=== PATIENT | female | born 1980 | race Caucasian/White ===

== ENCOUNTER 2017-02-04 16:27 | Emergency (ER) | payer MEDICARE, OTHER ==
[~2017-02-04] VITALS: Ht 157.5 cm; Wt 54.4 kg
[2017-02-04 16:42] VITALS: BP 121/81; PULSE 79; RESP 16; TEMP 98.5; O2SAT 100
[2017-02-04] MEDS ORDERED: FERR1TAB36 PO (17:05)
[2017-02-04] MEDS ORDERED: GABA600T PO (17:05)
[2017-02-04] MEDS ORDERED: FLUV50TA PO (17:06)
[2017-02-04 17:20] LABS: BLOOD, URINE SMALL (NEG); GLUCOSE,URINE NEG (NEG); KETONE, URINE TRACE mg/dL (NEG); NITRITE,URINE NEG (NEG)
[2017-02-04 17:27] LABS: MUCUS URINE FEW /lpf (OCC); URINE COLOR YELLOW (YELLW/STRAW)
[2017-02-04 17:28] LABS: COMMENT (UR) CULT NOT INDICATED; CULTURE IF INDICATED CULT NOT INDICATED; SQUAMOUS EPITHELIAL CELL URINE 0-5 /hpf (0-5)
[2017-02-04] MEDS ORDERED: ACETAMINOPHEN/HYDROcodone 325 MG/5 MG TAB PO ONE (18:30)
[2017-02-04 18:52] LABS: AUTOMATED NEUTROPHIL # 2.4 TH/MM3 (1.8-7.7); BASOPHIL % 0.7 % (0.0-2.0); EOSINOPHIL % 0.2 % (0.0-4.0); HEMATOCRIT 43.7 % (35.0-46.0); HEMO FLAGS DIFF FINAL; LYMPH % 45.8 % (9.0-44.0); LYMPHOCYTE # 2.3 TH/MM3 (1.0-4.8); MEAN CELL VOLUME 87.2 FL (80.0-100.0); MEAN CORPUSCULAR HGB CONC 33.2 % (32.0-36.0); MONO % 5.9 % (0.0-8.0); NEUT % 47.4 % (16.0-70.0); PLATELET COUNT 184 TH/MM3 (150-450); RED BLOOD COUNT 5.01 MIL/MM3 (4.00-5.30); RED CELL DISTRIBUTION WIDTH 13.1 % (11.6-17.2)
[2017-02-04 19:03] LABS: BICARBONATE 24.9 MEQ/L (21.0-32.0)
[2017-02-04] MEDS ORDERED: HYDR-3534 PO (19:52)
--- NOTE | 2017-02-04 19:53 | PD ---
HPI Chief Complaint: General Weakness Time Seen by Provider: 18:25 Travel History International Travel<30 days: No Contact w/Intl Traveler<30days: No Traveled to known affect area: No History of Present Illness HPI This 36-year-old female is complaining of some lower abdominal pain and pain with urination. She has a history of interstitial cystitis. She also had urinary tract infections in the past. Is also had occasional palpitations. She does have a history of hyperthyroidism that was treated with Tapazole. She was last on Tapazole about a year ago. PFSH Past Medical History Anemia: Yes Autoimmune Disease: Yes (GRAVE'S) Fibromyalgia: Yes Genitourinary: Yes (INTERSTITIAL CYSTITIS) Musculoskeletal: Yes (CHRONIC BACK PAIN) Reproductive: Yes (ENDOMETRIOSIS) Renal Failure: Yes (STAGE II CKD) Influenza Vaccination: Yes ?: Not Tubal Ligation: Yes Past Surgical History Section: Yes Genitourinary Surgery: Yes (CYSTOSCOPY) Hysterectomy: Yes Oral Surgery: Yes Social History Alcohol Use: No Tobacco Use: No Allergies-Medications (Allergen,Severity, Reaction): Coded Allergies: Sulfa (Verified Allergy, Severe, THROAT SWELLS, 02/04/17) Reported Meds & Prescriptions Reported Meds & Active Scripts Active Reported Fluvoxamine (Fluvoxamine Maleate) 50 Mg Tab 50 Mg PO HS Iron (Ferrous Sulfate) 325 Mg Tab 325 Mg PO DAILY Take Gabapentin 600 Mg Tab 1,200 Mg PO TID Review of Systems General / Constitutional: No: Fever, Chills Eyes: No: Diploplia, Blurred Vision HENT: No: Headaches, Vertigo Cardiovascular: Positive: Palpitations Respiratory: No: Cough, Shortness of Breath Gastrointestinal: No: Nausea, Vomiting Genitourinary: Positive: Frequency, Dysuria Musculoskeletal: No: Myalgias Skin: No Rash Physical Exam Narrative GENERAL: Well-developed male SKIN: Focused skin assessment warm/dry. HEAD: Atraumatic. Normocephalic. EYES: Pupils equal and round. No scleral icterus. No injection or drainage. ENT: No nasal bleeding or discharge. Mucous membranes pink and moist. NECK: Trachea midline. No JVD. CARDIOVASCULAR: Regular rate and rhythm. No murmur appreciated. RESPIRATORY: No accessory muscle use. Clear to auscultation. Breath sounds equal bilaterally. GASTROINTESTINAL: Abdomen soft, non-tender, nondistended. Hepatic and splenic margins not palpable. There is some suprapubic tenderness MUSCULOSKELETAL: No obvious deformities. No clubbing. No cyanosis. No edema. NEUROLOGICAL: Awake and alert. No obvious cranial nerve deficits. Motor grossly within normal limits. Normal speech. PSYCHIATRIC: Appropriate mood and affect; insight and judgment normal. Data Data Last Documented VS Vital Signs Date Time Temp Pulse Resp B/P Pulse Ox O2 Delivery O2 Flow Rate FiO2 02/04/17 16:42 98.5 79 16 121/81 100 Orders Urinalysis - C+S If Indicated (02/04/17 16:59) Complete Blood Count With Diff (02/04/17 18:29) Basic Metabolic Panel (Bmp) (02/04/17 18:29) Thyroid Stimulating Hormone (02/04/17 18:29) Acetamin-Hydrocod 325-5 Mg ([place] 5-325 (02/04/17 18:30) Labs Laboratory Tests Test 02/04/17 02/04/17 17:05 18:45 Urine Color YELLOW Urine Turbidity CLEAR Urine pH 7.0 Urine Specific [place] 1.031 Urine Protein 30 mg/dL Urine Glucose (UA) NEG mg/dL Urine Ketones TRACE mg/dL Urine Occult Blood SMALL Urine Nitrite NEG Urine Bilirubin NEG Urine Leukocyte Esterase NEG Urine RBC 4-9 /hpf Urine WBC 3-5 /hpf Urine Squamous Epithelial 0-5 /hpf Cells Urine Mucus FEW /lpf Microscopic Urinalysis Comment CULT NOT INDICATED White Blood Count 5.0 TH/MM3 Red Blood Count 5.01 MIL/MM3 Hemoglobin 14.5 GM/DL Hematocrit 43.7 % Mean Corpuscular Volume 87.2 FL Mean Corpuscular Hemoglobin 29.0 PG Mean Corpuscular Hemoglobin 33.2 % Concent Red Cell Distribution Width 13.1 % Platelet Count 184 TH/MM3 Mean Platelet Volume 8.0 FL Neutrophils (%) (Auto) 47.4 % Lymphocytes (%) (Auto) 45.8 % Monocytes (%) (Auto) 5.9 % Eosinophils (%) (Auto) 0.2 % Basophils (%) (Auto) 0.7 % Neutrophils # (Auto) 2.4 TH/MM3 Lymphocytes # (Auto) 2.3 TH/MM3 Monocytes # (Auto) 0.3 TH/MM3 Eosinophils # (Auto) 0.0 TH/MM3 Basophils # (Auto) 0.0 TH/MM3 CBC Comment DIFF FINAL Differential Comment Sodium Level 143 MEQ/L Potassium Level 4.0 MEQ/L Chloride Level 107 MEQ/L Carbon Dioxide Level 24.9 MEQ/L Anion Gap 11 MEQ/L Blood Urea Nitrogen 14 MG/DL Creatinine 0.88 MG/DL Estimat Glomerular Filtration 73 ML/MIN Rate Random Glucose 86 MG/DL Calcium Level 8.7 MG/DL Thyroid Stimulating Hormone 0.844 uIU/ML 3rd Gen [facility] Medical Decision Making Medical Screen Exam Complete: Yes Emergency Medical Condition: Yes Medical Record Reviewed: Yes Differential Diagnosis Differential includes UTI, cystitis, hypothyroidism Narrative Course Urine is negative for infection. Her TSH is within normal limits. She'll be given some pain medication to use for interstitial cystitis Diagnosis Primary Impression: Interstitial cystitis Scripts Hydrocodone-Acetaminophen (Lortab)7.5-325 Mg Tab1 Tab PO Q4H PRN (PAIN) #30 TAB Ref 0 Prov:Roni Jhaveri MD 02/04/17 Disposition: 01 DISCHARGE HOME Condition: Stable Roni Jhaveri MD Feb 04, 2017 19:53
[2017-02-04 20:19] VITALS: BP 110/70
== END 2017-02-04 20:20 | disposition home or self-care (01) ==
LOC: PHED 16:27 → PHEFT 20:20
DX: N30.10 Interstitial cystitis (chronic) without hematuria (principal); M79.7 Fibromyalgia; N18.2 Chronic kidney disease, stage 2 (mild); E05.00 Thyrotoxicosis with diffuse goiter without thyrotoxic crisis or storm; Z87.440 Personal history of urinary (tract) infections
CPT/HCPCS: 80048; 81001; 84443; 85025; 99284

== ENCOUNTER 2017-02-09 10:55 | Emergency (ER) | payer MEDICARE, OTHER ==
[~2017-02-09] VITALS: Ht 157.5 cm; Wt 55.0 kg
[~2017-02-09 10:55] MED LIST: FERR1TAB36 PO; FLUV50TA PO; GABA600T PO; HYDR-3534 PO
[2017-02-09 11:04] VITALS: BP 114/79; PULSE 94; RESP 16; TEMP 98.1; O2SAT 95
[2017-02-09 11:12] VITALS: BP 119/72; PULSE 90; RESP 18; O2SAT 96
[2017-02-09 11:13] LABS: BLOOD, URINE LARGE (NEG); GLUCOSE,URINE NEG (NEG); KETONE, URINE TRACE mg/dL (NEG); NITRITE,URINE NEG (NEG); PH, URINE 5.5 (5.0-8.5)
[2017-02-09 11:19] LABS: METHOD OF COLLECTION CLEAN CATCH; URINE COLOR YELLOW (YELLW/STRAW)
[2017-02-09 11:20] LABS: COMMENT (UR) CULT NOT INDICATED; CULTURE IF INDICATED CULT NOT INDICATED; SQUAMOUS EPITHELIAL CELL URINE 0-5 /hpf (0-5); WBC, URINE 0-2 /hpf (0-5)
[2017-02-09] MEDS ORDERED: SODIUM CHLOR 0.9% 1000 ML INJ 1,000 ML IV SCH (11:25)
[2017-02-09] MEDS ORDERED: MORPHINE SULFATE 4 MG/ML INJ IV PUSH ONE ×2 (11:30→13:00)
[2017-02-09] MEDS ORDERED: ONDANSETRON HCL 4 MG/2 ML VIAL IVP ONE (11:30)
--- NOTE | 2017-02-09 11:30 | PD ---
HPI Chief Complaint: Complaint Time Seen by Provider: 11:24 Travel History International Travel<30 days: No Contact w/Intl Traveler<30days: No Traveled to known affect area: No History of Present Illness HPI 36-year-old female with history of fibromyalgia, Graves' disease, interstitial cystitis, endometriosis, kidney stones with previous stenting, recently moved from [place], does not yet have a urologist, presents to the ER today because of right flank pains that started yesterday, radiates down to the right flank area, urinary urgency, which she currently rates it a 9 out of 10. She denies any hematuria, fevers, vomiting, or other symptoms. She states that the pain feels like a scraping. Modifying Factors: None Associated Signs & Symptoms: Right flank pain Risk Factors: Kidney stone history PFSH Past Medical History Anemia: Yes Autoimmune Disease: Yes (GRAVE'S) Fibromyalgia: Yes Genitourinary: Yes (INTERSTITIAL CYSTITIS) Musculoskeletal: Yes (CHRONIC BACK PAIN) Reproductive: Yes (ENDOMETRIOSIS) Renal Failure: Yes (STAGE II CKD) Influenza Vaccination: Yes ?: Not Tubal Ligation: Yes Past Surgical History Section: Yes Genitourinary Surgery: Yes (CYSTOSCOPY) Hysterectomy: Yes Oral Surgery: Yes Social History Alcohol Use: No Tobacco Use: No Substance Use: No Allergies-Medications (Allergen,Severity, Reaction): Coded Allergies: Sulfa (Verified Allergy, Severe, THROAT SWELLS, 02/09/17) Reported Meds & Prescriptions Reported Meds & Active Scripts Active Reported Fluvoxamine (Fluvoxamine Maleate) 50 Mg Tab 50 Mg PO HS Gabapentin 600 Mg Tab 1,200 Mg PO TID Review of Systems Except as stated in HPI: all other systems reviewed are Neg Physical Exam Narrative GENERAL: Well-developed young white female patient in mild distress. Awake and oriented 3. SKIN: Focused skin assessment warm/dry. HEAD: Atraumatic. Normocephalic. EYES: Pupils equal and round. No scleral icterus. No injection or drainage. ENT: No nasal bleeding or discharge. Mucous membranes pink and moist. NECK: Trachea midline. No JVD. CARDIOVASCULAR: Regular rate and rhythm. No murmur appreciated. RESPIRATORY: No accessory muscle use. Clear to auscultation. Breath sounds equal bilaterally. GASTROINTESTINAL: Abdomen soft, mild suprapubic tenderness without guarding or rebound, nondistended. Hepatic and splenic margins not palpable. MUSCULOSKELETAL: No obvious deformities. No clubbing. No cyanosis. No edema. BACK: Right CVA tenderness. No rash. No point tenderness on palpation of the spine. NEUROLOGICAL: Awake and alert. No obvious cranial nerve deficits. Motor grossly within normal limits. Normal speech. PSYCHIATRIC: Appropriate mood and affect; insight and judgment normal. Data Data Last Documented VS Vital Signs Date Time Temp Pulse Resp B/P Pulse Ox O2 Delivery O2 Flow Rate FiO2 02/09/17 12:03 76 18 121/69 99 Room Air 02/09/17 11:04 98.1 Orders Urinalysis - C+S If Indicated (02/09/17 11:02) Ed Urine Pregnancytest Poc (02/09/17 11:06) Complete Blood Count With Diff (02/09/17 11:25) Comprehensive Metabolic Panel (02/09/17 11:25) Lipase (02/09/17 11:25) Ct Abd/Pel W/O Iv Contrast (02/09/17 11:25) Iv Access Insert/Monitor (02/09/17 11:25) Ecg Monitoring (02/09/17 11:25) Oximetry (02/09/17 11:25) Morphine Inj (Morphine Inj) (02/09/17 11:30) Ondansetron Inj (Zofran Inj) (02/09/17 11:30) Sodium Chlor 0.9% 1000 Ml Inj (Ns 1000 M (02/09/17 11:25) Sodium Chloride 0.9% Flush (Ns Flush) (02/09/17 11:30) Morphine Inj (Morphine Inj) (02/09/17 13:00) Labs Laboratory Tests Test 02/09/17 02/09/17 11:00 11:30 Urine Collection Type CLEAN CATCH Urine Color YELLOW Urine Turbidity CLOUDY Urine pH 5.5 Urine Specific [place] 1.026 Urine Protein 100 mg/dL Urine Glucose (UA) NEG mg/dL Urine Ketones TRACE mg/dL Urine Occult Blood LARGE Urine Nitrite NEG Urine Bilirubin NEG Urine Leukocyte Esterase NEG Urine RBC 50-99 /hpf Urine WBC 0-2 /hpf Urine Squamous Epithelial 0-5 /hpf Cells Microscopic Urinalysis Comment CULT NOT INDICATED White Blood Count 4.1 TH/MM3 Red Blood Count 4.86 MIL/MM3 Hemoglobin 14.3 GM/DL Hematocrit 42.7 % Mean Corpuscular Volume 87.7 FL Mean Corpuscular Hemoglobin 29.4 PG Mean Corpuscular Hemoglobin 33.5 % Concent Red Cell Distribution Width 13.7 % Platelet Count 214 TH/MM3 Mean Platelet Volume 7.9 FL Neutrophils (%) (Auto) 63.9 % Lymphocytes (%) (Auto) 29.4 % Monocytes (%) (Auto) 5.6 % Eosinophils (%) (Auto) 0.1 % Basophils (%) (Auto) 1.0 % Neutrophils # (Auto) 2.7 TH/MM3 Lymphocytes # (Auto) 1.2 TH/MM3 Monocytes # (Auto) 0.2 TH/MM3 Eosinophils # (Auto) 0.0 TH/MM3 Basophils # (Auto) 0.0 TH/MM3 CBC Comment DIFF FINAL Differential Comment Sodium Level 145 MEQ/L Potassium Level 4.1 MEQ/L Chloride Level 108 MEQ/L Carbon Dioxide Level 31.1 MEQ/L Anion Gap 6 MEQ/L Blood Urea Nitrogen 15 MG/DL Creatinine 0.85 MG/DL Estimat Glomerular Filtration 76 ML/MIN Rate Random Glucose 90 MG/DL Calcium Level 9.2 MG/DL Total Bilirubin 0.6 MG/DL Aspartate Amino Transf 23 U/L (AST/SGOT) Alanine Aminotransferase 24 U/L (ALT/SGPT) Alkaline Phosphatase 62 U/L Total Protein 6.7 GM/DL Albumin 3.9 GM/DL Lipase 77 U/L [facility] Medical Decision Making Medical Screen Exam Complete: Yes Emergency Medical Condition: Yes Medical Record Reviewed: Yes Interpretation(s) Laboratory Tests Test 02/09/17 02/09/17 11:00 11:30 Urine Turbidity CLOUDY (CLEAR) Urine Protein 100 mg/dL (NEG-TRACE) Urine Ketones TRACE mg/dL (NEG) Urine Occult Blood LARGE (NEG) Urine RBC 50-99 /hpf (0-3) Chloride Level 108 MEQ/L (98-107) Estimat Glomerular Filtration 76 ML/MIN (>89) Rate Differential Diagnosis Right flank painsrenal colic versus pyelonephritis versus musculoskeletal versus cholecystitis versus gastroenteritis Narrative Course Patient confirms she has had an appendectomy and a hysterectomy. Her CAT scan of the belly did not show any signs of acute processes. Her urine shows some blood but no signs of significant UTI. Lab work was otherwise unremarkable. Patient had been given IV fluids and pain medication as well as Zofran in the ER. At this point, my plan would be to release the patient with follow-up to primary care physician. Return for any worsening in symptoms as necessary. The plan has discussed with her and she states understanding. Diagnosis Primary Impression: Flank pain Med/Other Pt SpecificInfo: Prescription(s) given Scripts Ondansetron Odt (Zofran Odt)4 Mg Tab4 Mg SL Q6HR PRN (Nausea/Vomiting) #5 TAB Ref 0 Prov:Ángel Magana MD 02/09/17 Tramadol-Acetaminophen 37.5-325 mg Tab1 Tab PO Q6H PRN (PAIN) #12 TAB Ref 0 Prov:Ángel Magana MD 02/09/17 Disposition: 01 DISCHARGE HOME Condition: Stable Ángel Magana MD Feb 09, 2017 11:30
[2017-02-09 11:34] VITALS: O2SAT 98
[2017-02-09 11:40] LABS: AUTOMATED NEUTROPHIL # 2.7 TH/MM3 (1.8-7.7); EOSINOPHIL % 0.1 % (0.0-4.0); HEMATOCRIT 42.7 % (35.0-46.0); HEMO FLAGS DIFF FINAL; LYMPH % 29.4 % (9.0-44.0); LYMPHOCYTE # 1.2 TH/MM3 (1.0-4.8); MEAN CELL VOLUME 87.7 FL (80.0-100.0); MEAN CORPUSCULAR HEMOGLOBIN 29.4 PG (27.0-34.0); MEAN CORPUSCULAR HGB CONC 33.5 % (32.0-36.0); MONO % 5.6 % (0.0-8.0); NEUT % 63.9 % (16.0-70.0); PLATELET COUNT 214 TH/MM3 (150-450); RED BLOOD COUNT 4.86 MIL/MM3 (4.00-5.30); RED CELL DISTRIBUTION WIDTH 13.7 % (11.6-17.2); WHITE BLOOD COUNT 4.1 TH/MM3 (4.0-11.0)
[2017-02-09] MEDS: SODIUM CHLORIDE 0.9% FLUSH 10 ML FLUSH IV FLUSH PRN ×2 (11:41→13:01)
[2017-02-09 11:50] LABS: CHLORIDE 108 MEQ/L (98-107); POTASSIUM 4.1 MEQ/L (3.5-5.1); SODIUM (NA) 145 MEQ/L (136-145)
[2017-02-09 11:53] LABS: ANION GAP 6 MEQ/L (5-15); BICARBONATE 31.1 MEQ/L (21.0-32.0)
[2017-02-09 11:54] LABS: BLOOD UREA NITROGEN 15 MG/DL (7-18)
[2017-02-09 11:56] LABS: ALT (GPT) 24 U/L (10-53); AST (GOT) 23 U/L (15-37)
[2017-02-09 11:57] LABS: GLOMERULAR FILTRATION RATE 76 ML/MIN (>89)
[2017-02-09 11:58] LABS: TOTAL BILIRUBIN ADULT 0.6 MG/DL (0.2-1.0)
[2017-02-09 11:59] LABS: ALKALINE PHOSPHATASE 62 U/L (45-117)
[2017-02-09 12:03] VITALS: BP 121/69; PULSE 76; RESP 18; O2SAT 99
--- NOTE | 2017-02-09 13:08 | RADHPO ---
EXAM DATE/TIME: 02/09/2017 11:39 [facility] COMPARISON: No previous studies available for comparison. INDICATIONS : Right flank pain. Evaluate for renal stone. ORAL CONTRAST: No oral contrast ingested. RADIATION DOSE: 7.32 CTDIvol (mGy) MEDICAL HISTORY : Renal calculi. Renal disease. SURGICAL HISTORY : Tubal ligation. section. Hysterectomy. ENCOUNTER: Initial ACUITY: 1 day PAIN SCALE: 8/10 LOCATION: Right flank TECHNIQUE: Volumetric scanning of the abdomen and pelvis was performed. Using automated exposure control and ad justment of the mA and/or kV according to patient size, radiation dose was kept as low as reasonably achievable to obtain optimal diagnostic quality images. FINDINGS: There is chronic atrophy of the left kidney. The left kidney measures approximately 6.9 cm in length . There is cortical thinning. The right kidney measures over 10 cm in length. There is a 0.6 cm ca lcifications seen at the inferior medial left kidney. There is also a peripheral cortical calcificat ion measuring 4 mm at the superior lateral left kidney. No right-sided renal stones are seen. No hy dronephrosis is seen on either side. The ureters appear clear. The liver, spleen, pancreas, and adrenal glands are unremarkable. Patient has bowel glynn in the r ight upper quadrant presumably from prior gastric bypass procedure. There is also bowel anastomosis sutures in the left upper quadrant likely from the prior bypass procedure. The bowels are unremarkab le. Patient appears to be status post hysterectomy. No pelvic mass is seen. There does appear to be hig h density material seen medial to the cecum which may be from prior appendectomy. The appendix is no t seen. Significant inflammatory change in the pelvis is not seen. The lung bases are clear. The b skye structures are grossly intact. CONCLUSION: 1. No renal stones are seen. 2. Chronic atrophy at the left kidney. There are calcifications seen at the left kidney which likel y are related to cortical calcifications. 3. Suspected post-surgical change from prior gastric bypass procedure. Favian Larios MD on February 09, 2017 at 12:40 Board Certified Radiologist. This report was verified electronically.
[2017-02-09] MEDS ORDERED: TRAM-388 PO (13:28)
[2017-02-09] MEDS ORDERED: ZOFR4TAB3 SL (13:28)
[2017-02-09 13:46] VITALS: BP 126/78
[2017-02-09] MEDS ORDERED: HYDR-3533 PO (13:48)
== END 2017-02-09 13:51 | disposition home or self-care (01) ==
LOC: PHED 10:55
DX: R10.31 Right lower quadrant pain (principal); R39.15 Urgency of urination; E05.00 Thyrotoxicosis with diffuse goiter without thyrotoxic crisis or storm; M79.7 Fibromyalgia; N18.2 Chronic kidney disease, stage 2 (mild); Z87.442 Personal history of urinary calculi
CPT/HCPCS: 74176; 80053; 81001; 83690; 85025; 96361; 96374; 96375; 96376; 99284; J2270; J2405; J7030

== ENCOUNTER 2017-02-16 12:05 | Emergency (ER) | payer MEDICARE, OTHER ==
[~2017-02-16] VITALS: Ht 157.5 cm; Wt 52.0 kg
[~2017-02-16 12:05] MED LIST changes: -FERR1TAB36 PO; +HYDR-3533 PO; -HYDR-3534 PO; +ZOFR4TAB3 SL
[2017-02-16 12:10] VITALS: BP 97/66; PULSE 83; RESP 15; TEMP 98; O2SAT 99
[2017-02-16] MEDS ORDERED: TEMA30CA PO ×2 (12:18→12:20)
[2017-02-16] MEDS ORDERED: GABA600T PO (12:20)
--- NOTE | 2017-02-16 12:29 | PD ---
HPI Chief Complaint: Medication Refill Request Time Seen by Provider: 12:26 Travel History International Travel<30 days: No Contact w/Intl Traveler<30days: No Traveled to known affect area: No History of Present Illness HPI 36-year-old female with a history of fibromyalgia and insomnia that presents to the ED for evaluation medication refills. Per patient she recently moved from [place] and she chronically takes gabapentin and temazepam for this. Per patient she has been able to make an appointment with a doctor in the area but they're went to see him until next week. Per patient she ran out of her medications but 2 days ago and she is feeling discomfort secondary to being out of her medications. She chronically takes gabapentin and temazepam for years. She denies any changes in the doses of his medications. She denies any other medical issues. Per patient her pain is chronic and is 6 out of 10 all over. No other medical complaints at this time. Nothing has changed per patient. Allergy to sulfa. PFSH Past Medical History Anemia: Yes Autoimmune Disease: Yes (GRAVE'S) Diminished Hearing: No Fibromyalgia: Yes Genitourinary: Yes (INTERSTITIAL CYSTITIS) Musculoskeletal: Yes (CHRONIC BACK PAIN) Reproductive: Yes (ENDOMETRIOSIS vulvadynia pelvic floor dysfunction) Immunizations Current: Yes Renal Failure: Yes (STAGE II CKD) Tetanus Vaccination: < 5 Years Influenza Vaccination: Yes ?: Not LMP: HYSTER. Tubal Ligation: Yes Past Surgical History Abdominal Surgery: Yes (laparoscopy) Section: Yes Genitourinary Surgery: Yes (CYSTOSCOPY) Hysterectomy: Yes Oral Surgery: Yes (wisdom) Social History Alcohol Use: No Tobacco Use: No Substance Use: No Allergies-Medications (Allergen,Severity, Reaction): Coded Allergies: Sulfa (Verified Allergy, Severe, THROAT SWELLS, 02/16/17) Reported Meds & Prescriptions Reported Meds & Active Scripts Active Temazepam 30 Mg Cap 30 Mg PO HS PRN 7 Days Gabapentin 600 Mg Tab 1,200 Mg PO TID 30 Days Review of Systems Except as stated in HPI: all other systems reviewed are Neg Physical Exam Narrative GENERAL: SKIN: Warm and dry. HEAD: Atraumatic. Normocephalic. EYES: Pupils equal and round. No scleral icterus. No injection or drainage. ENT: No nasal bleeding or discharge. Mucous membranes pink and moist. Tongue is midline. No uvula deviation. NECK: Trachea midline. No JVD. CARDIOVASCULAR: Regular rate and rhythm. No murmurs, S3, S4. RESPIRATORY: No accessory muscle use. Clear to auscultation. Breath sounds equal bilaterally. GASTROINTESTINAL: Abdomen soft, non-tender, nondistended. Hepatic and splenic margins not palpable. MUSCULOSKELETAL: Extremities without clubbing, cyanosis, or edema. No obvious deformities. Full range of motion of the upper and lower extremities bilaterally. 2+ pulses bilaterally. NEUROLOGICAL: Awake and alert. No obvious cranial nerve deficits. Motor grossly within normal limits. Five out of 5 muscle strength in the arms and legs. Normal speech. PSYCHIATRIC: Appropriate mood and affect; insight and judgment normal. Data Data Last Documented VS Vital Signs Date Time Temp Pulse Resp B/P Pulse Ox O2 Delivery O2 Flow Rate FiO2 02/16/17 12:10 98.0 83 15 97/66 99 MDM Medical Decision Making Medical Screen Exam Complete: Yes Emergency Medical Condition: Yes Medical Record Reviewed: Yes Differential Diagnosis Medication refill versus fibromyalgia versus insomnia Narrative Course 36-year-old female that presents to the ED for evaluation of medication refill. Patient was properly examined and was found to have signs and symptoms consistent with appears to be medication refill. No sign of acute medical distress. Patient was told that she needs to follow with primary care doctor for refills in the future. This time I will give her a refill of her gabapentin and week supply of her temazepam after speaking with my attending who agrees with this. Patient was told to follow with PCP for further refills. See ED for worsening symptoms. Follow with PCP. Diagnosis Primary Impression: Chronic pain Qualified Code: G89.29 - Other chronic pain Patient Instructions: General Instructions Additional Instructions: Take medications as prescribed. Follow with your PCP for further refills. See ED if worsening symptoms. Med/Other Pt SpecificInfo: Prescription(s) given Scripts Temazepam 30 Mg Cap30 Mg PO HS PRN (INSOMNIA) 7 Days Ref 0 Prov:Lorenzo Rangel MD 02/16/17 Gabapentin 600 Mg Tab1,200 Mg PO TID 30 Days Ref 0 Prov:Lorenzo Rangel MD 02/16/17 Disposition: 01 DISCHARGE HOME Condition: Stable Shane Olivera Feb 16, 2017 12:29
[2017-02-17] MEDS ORDERED: ACET500T36 PO (02:04)
== END 2017-02-16 12:35 | disposition home or self-care (01) ==
LOC: PHEFT 12:05
DX: G89.29 Other chronic pain (principal); G47.00 Insomnia, unspecified; M79.7 Fibromyalgia; D64.9 Anemia, unspecified; N18.2 Chronic kidney disease, stage 2 (mild); Z76.0 Encounter for issue of repeat prescription
CPT/HCPCS: 99281

== ENCOUNTER 2017-02-17 00:17 | Emergency (ER) | payer MEDICARE, OTHER ==
[~2017-02-17] VITALS: Ht 157.5 cm; Wt 60.0 kg
[~2017-02-17 00:17] MED LIST changes: -FLUV50TA PO; -HYDR-3533 PO; +TEMA30CA PO; -ZOFR4TAB3 SL
[2017-02-17 00:24] VITALS: BP 103/68; PULSE 90; RESP 18; TEMP 98.1; O2SAT 99
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
[2017-02-17] MEDS ORDERED: DIAZEPAM 5 MG TAB PO ONE (01:45)
[2017-02-17] MEDS ORDERED: ACETAMINOPHEN 325 MG TAB PO ONE (01:45)
[2017-02-17] MEDS ORDERED: ACET500T36 PO (02:04)
[2017-02-17 02:12] VITALS: PULSE 74; RESP 18; O2SAT 99
== END 2017-02-17 02:16 | disposition home or self-care (01) ==
LOC: PHED 00:17
DX: M79.1 Myalgia (principal)
CPT/HCPCS: 99283

== ENCOUNTER 2017-02-26 08:13 | Emergency (ER) | payer MEDICARE, OTHER ==
[~2017-02-26] VITALS: Ht 157.5 cm; Wt 54.4 kg
[~2017-02-26 08:13] MED LIST changes: +ACET500T36 PO
[2017-02-26 08:22] VITALS: BP 102/66; PULSE 78; RESP 16; TEMP 97.7; O2SAT 97
[2017-02-26] MEDS ORDERED: SODIUM CHLOR 0.9% 1000 ML INJ 1,000 ML IV ONE ×2 (08:35→09:00)
[2017-02-26] MEDS ORDERED: DEXAMETHASONE SOD PHOS 20 MG/5 ML VIAL IV PUSH ONE (08:45)
[2017-02-26] MEDS ORDERED: METOCLOPRAMIDE HCL 10 MG/2 ML VIAL IVP ONE (08:45)
[2017-02-26] MEDS ORDERED: diphenhydrAMINE HCL 50 MG/ML VIAL IVP ONE (08:45)
[2017-02-26] MEDS ORDERED: SODIUM CHLORIDE 0.9% FLUSH 10 ML FLUSH IVF PRN (08:45)
--- NOTE | 2017-02-26 08:51 | PD ---
HPI Chief Complaint: Headache Time Seen by Provider: 08:30 Travel History International Travel<30 days: No Contact w/Intl Traveler<30days: No Traveled to known affect area: No History of Present Illness HPI Patient is a 36-year-old female who presents to emergency room with complaints of headache. Reports that she has history of migraines in the past, reports that around yesterday noontime, she began to have a frontal headache which radiates her to the back of her head. Patient reports that she does have photophobia with her symptoms. Patient reports that she has had similar migraine symptoms in the past. Patient reports that she feels nauseous and has been vomiting with her symptoms. Patient denies that this is the worse headache her life, as they have been worse when she was a teenager. Patient denies any fevers or chills, denies any chest pain or shortness of breath. She reports that she also has been having dysuria, urinary urgency and frequency and hematuria. She has no flank pain, reports that she is concerned that she may have a UTI. PFSH Past Medical History Anemia: Yes Autoimmune Disease: Yes (GRAVE'S) Diminished Hearing: No Fibromyalgia: Yes Genitourinary: Yes (INTERSTITIAL CYSTITIS) Musculoskeletal: Yes (CHRONIC BACK PAIN) Reproductive: Yes (ENDOMETRIOSIS vulvadynia pelvic floor dysfunction) Immunizations Current: Yes Renal Failure: Yes (STAGE II CKD) ?: Not Menopausal: Yes Tubal Ligation: Yes (04') Past Surgical History Abdominal Surgery: Yes (LAPROSCOPY 00', GASTRIC BYPASS 14') Section: Yes (03') Genitourinary Surgery: Yes (CYSTOSCOPY 08') Hysterectomy: Yes (OOPHRECTOMY 13') Oral Surgery: Yes (WISDOM 97') Social History Alcohol Use: No Tobacco Use: No Substance Use: No Allergies-Medications (Allergen,Severity, Reaction): Coded Allergies: Sulfa (Verified Allergy, Severe, THROAT SWELLS, 02/26/17) Reported Meds & Prescriptions Reported Meds & Active Scripts Active Pyridium (Phenazopyridine HCl) 100 Mg Tab 100 Mg PO Q8H PRN 3 Days Macrobid (Nitrofurantoin Monoh/Nitrofur Macro) 100 Mg Cap 100 Mg PO BID 10 Days Gabapentin 600 Mg Tab 1,200 Mg PO TID 30 Days Review of Systems General / Constitutional: No: Fever Eyes: Positive: Photophobia, No: Blurred Vision, Pain, Visual changes HENT: Positive: Headaches Cardiovascular: No: Chest Pain or Discomfort Respiratory: No: Shortness of Breath Gastrointestinal: Positive: Nausea, Vomiting, No: Abdominal Pain Genitourinary: Positive: Urgency, Frequency, Dysuria, Hematuria Musculoskeletal: No: Pain Skin: No Rash Neurologic: No: Weakness Psychiatric: No: Depression Endocrine: No: Polydipsia Hematologic/Lymphatic: No: Easy Bruising Physical Exam Narrative GENERAL: Moderate distress SKIN: Focused skin assessment warm/dry. HEAD: Atraumatic. Normocephalic. EYES: Pupils equal and round. No scleral icterus. No injection or drainage. ENT: No nasal bleeding or discharge. Mucous membranes pink and moist. NECK: Trachea midline. No JVD. CARDIOVASCULAR: Regular rate and rhythm. No murmur appreciated. RESPIRATORY: No accessory muscle use. Clear to auscultation. Breath sounds equal bilaterally. GASTROINTESTINAL: Abdomen soft, non-tender, nondistended. Hepatic and splenic margins not palpable. MUSCULOSKELETAL: No obvious deformities. No clubbing. No cyanosis. No edema. NEUROLOGICAL: Awake and alert. No obvious cranial nerve deficits. Motor grossly within normal limits. Normal speech. CN 2-12 grossly intact with no neurological deficits PSYCHIATRIC: Appropriate mood and affect; insight and judgment normal. Data Data Last Documented VS Vital Signs Date Time Temp Pulse Resp B/P Pulse Ox O2 Delivery O2 Flow Rate FiO2 02/26/17 08:22 97.7 78 16 102/66 97 Orders Complete Blood Count With Diff (02/26/17 08:35) Basic Metabolic Panel (Bmp) (02/26/17 08:35) Ecg Monitoring (02/26/17 08:35) Iv Access Insert/Monitor (02/26/17 08:35) Sodium Chloride 0.9% Flush (Ns Flush) (02/26/17 08:45) Diphenhydramine Inj (Benadryl Inj) (02/26/17 08:45) Metoclopramide Inj (Reglan Inj) (02/26/17 08:45) Sodium Chlor 0.9% 1000 Ml Inj (Ns 1000 M (02/26/17 08:35) Ed Urine Pregnancytest Poc (02/26/17 08:35) Dexamethasone Inj (Decadron Inj) (02/26/17 08:45) Urinalysis - C+S If Indicated (02/26/17 08:35) Sodium Chlor 0.9% 1000 Ml Inj (Ns 1000 M (02/26/17 09:00) Urine Culture (02/26/17 08:50) Ceftriaxone Inj (Rocephin Inj) (02/26/17 10:00) Labs Laboratory Tests Test 02/26/17 02/26/17 08:50 08:55 Urine Collection Type CLEAN CATCH Urine Color ORANGE Urine Turbidity CLEAR Urine pH 5.5 Urine Specific [place] 1.028 Urine Protein 100 mg/dL Urine Glucose (UA) 250 mg/dL Urine Ketones TRACE mg/dL Urine Occult Blood MOD Urine Nitrite POS Urine Bilirubin NEG Urine Leukocyte Esterase NEG Urine RBC 25-49 /hpf Urine WBC 3-5 /hpf Urine Squamous Epithelial 0-5 /hpf Cells Microscopic Urinalysis Comment CULTURE INDICATED Urine Collection Time 08:50 White Blood Count 3.5 TH/MM3 Red Blood Count 4.49 MIL/MM3 Hemoglobin 13.6 GM/DL Hematocrit 40.9 % Mean Corpuscular Volume 91.0 FL Mean Corpuscular Hemoglobin 30.1 PG Mean Corpuscular Hemoglobin 33.1 % Concent Red Cell Distribution Width 13.6 % Platelet Count 215 TH/MM3 Mean Platelet Volume 8.2 FL Neutrophils (%) (Auto) 49.9 % Lymphocytes (%) (Auto) 41.4 % Monocytes (%) (Auto) 7.7 % Eosinophils (%) (Auto) 0.3 % Basophils (%) (Auto) 0.7 % Neutrophils # (Auto) 1.8 TH/MM3 Lymphocytes # (Auto) 1.4 TH/MM3 Monocytes # (Auto) 0.3 TH/MM3 Eosinophils # (Auto) 0.0 TH/MM3 Basophils # (Auto) 0.0 TH/MM3 CBC Comment DIFF FINAL Differential Comment Sodium Level 145 MEQ/L Potassium Level 3.7 MEQ/L Chloride Level 107 MEQ/L Carbon Dioxide Level 31.3 MEQ/L Anion Gap 7 MEQ/L Blood Urea Nitrogen 11 MG/DL Creatinine 0.85 MG/DL Estimat Glomerular Filtration 76 ML/MIN Rate Random Glucose 98 MG/DL Calcium Level 8.9 MG/DL MDM Medical Decision Making Medical Screen Exam Complete: Yes Emergency Medical Condition: Yes Interpretation(s) Vital Signs Date Time Temp Pulse Resp B/P Pulse Ox O2 Delivery O2 Flow Rate FiO2 02/26/17 08:22 97.7 78 16 102/66 97 Differential Diagnosis Cephalgia, electrolyte abnormality, dehydration, UTI Narrative Course 36-year-old female with history of migraines, presents to emergency room with complaints of migraine headache. She reports that her symptoms began yesterday afternoon, reports that her symptoms have been persistent. Patient reports that she has had migraine headaches since she was a teenager, reports that her symptoms feel exactly the same as her normal migraine headaches. Patient does have a normal neurological exam, plan to treat with migraine cocktail. Patient also reports that she has history of UTIs in the past, reports that she has had hematuria, dysuria, urinary urgency and frequency over the past 2 days, patient concerned that she may have UTI, UA obtained. Vital Signs Date Time Temp Pulse Resp B/P Pulse Ox O2 Delivery O2 Flow Rate FiO2 02/26/17 08:22 97.7 78 16 102/66 97 Laboratory Tests Test 02/26/17 02/26/17 08:50 08:55 Urine Collection Type CLEAN CATCH Urine Color ORANGE (YELLW/STRAW) Urine Turbidity CLEAR (CLEAR) Urine pH 5.5 (5.0-8.5) Urine Specific [place] 1.028 (1.002-1.035) Urine Protein 100 mg/dL (NEG-TRACE) Urine Glucose (UA) 250 mg/dL (NEG) Urine Ketones TRACE mg/dL (NEG) Urine Occult Blood MOD (NEG) Urine Nitrite POS (NEG) Urine Bilirubin NEG (NEG) Urine Leukocyte Esterase NEG (NEG) Urine RBC 25-49 /hpf (0-3) Urine WBC 3-5 /hpf (0-5) Urine Squamous Epithelial 0-5 /hpf (0-5) Cells Microscopic Urinalysis Comment CULTURE INDICATED Urine Collection Time 08:50 White Blood Count 3.5 TH/MM3 (4.0-11.0) Red Blood Count 4.49 MIL/MM3 (4.00-5.30) Hemoglobin 13.6 GM/DL (11.6-15.3) Hematocrit 40.9 % (35.0-46.0) Mean Corpuscular Volume 91.0 FL (80.0-100.0) Mean Corpuscular Hemoglobin 30.1 PG (27.0-34.0) Mean Corpuscular Hemoglobin 33.1 % Concent (32.0-36.0) Red Cell Distribution Width 13.6 % (11.6-17.2) Platelet Count 215 TH/MM3 (150-450) Mean Platelet Volume 8.2 FL (7.0-11.0) Neutrophils (%) (Auto) 49.9 % (16.0-70.0) Lymphocytes (%) (Auto) 41.4 % (9.0-44.0) Monocytes (%) (Auto) 7.7 % (0.0-8.0) Eosinophils (%) (Auto) 0.3 % (0.0-4.0) Basophils (%) (Auto) 0.7 % (0.0-2.0) Neutrophils # (Auto) 1.8 TH/MM3 (1.8-7.7) Lymphocytes # (Auto) 1.4 TH/MM3 (1.0-4.8) Monocytes # (Auto) 0.3 TH/MM3 (0-0.9) Eosinophils # (Auto) 0.0 TH/MM3 (0-0.4) Basophils # (Auto) 0.0 TH/MM3 (0-0.2) CBC Comment DIFF FINAL Differential Comment Sodium Level 145 MEQ/L (136-145) Potassium Level 3.7 MEQ/L (3.5-5.1) Chloride Level 107 MEQ/L (98-107) Carbon Dioxide Level 31.3 MEQ/L (21.0-32.0) Anion Gap 7 MEQ/L (5-15) Blood Urea Nitrogen 11 MG/DL (7-18) Creatinine 0.85 MG/DL (0.50-1.00) Estimat Glomerular Filtration 76 ML/MIN (>89) Rate Random Glucose 98 MG/DL (74-106) Calcium Level 8.9 MG/DL (8.5-10.1) Patient reevaluated, patient feeling much better at this time. Patient refusing iv antibiotics for uti and request script for uti. Patient will follow-up with all cultures from today. Patient follow up with her primary care doctor. Signs and symptoms of when to return to the emergency room was reviewed patient in detail. Diagnosis Primary Impression: Cephalgia Qualified Code: R51 - Nonintractable headache, unspecified chronicity pattern , unspecified headache type Additional Impressions: UTI (urinary tract infection) Qualified Code: N30.01 - Acute cystitis with hematuria Hematuria Patient Instructions: General Instructions Additional Instructions: Please follow-up with your primary care doctor Please follow-up with all cultures from today Return to the emergency room as needed Return to emergency room if symptoms worsen or progress Please take all antibiotics as prescribed Med/Other Pt SpecificInfo: Prescription(s) given Scripts Phenazopyridine (Pyridium)100 Mg [id number] Mg PO Q8H PRN (DYSURIA) 3 Days Ref 0 Prov:Nolvia Ramirez DO 02/26/17 Nitrofurantoin Monohydrate Macrocrystals (Macrobid)100 Mg [id number] Mg PO BID 10 Days Ref 0 Prov:Nolvia Ramirez DO 02/26/17 Disposition: 01 DISCHARGE HOME Condition: Stable Nolvia Ramirez DO February 26, 2017 08:51
[2017-02-26 09:19] LABS: AUTOMATED NEUTROPHIL # 1.8 TH/MM3 (1.8-7.7); BASOPHIL % 0.7 % (0.0-2.0); EOSINOPHIL % 0.3 % (0.0-4.0); HEMATOCRIT 40.9 % (35.0-46.0); HEMO FLAGS DIFF FINAL; LYMPH % 41.4 % (9.0-44.0); LYMPHOCYTE # 1.4 TH/MM3 (1.0-4.8); MEAN CORPUSCULAR HEMOGLOBIN 30.1 PG (27.0-34.0); MEAN CORPUSCULAR HGB CONC 33.1 % (32.0-36.0); MONO % 7.7 % (0.0-8.0); NEUT % 49.9 % (16.0-70.0); PLATELET COUNT 215 TH/MM3 (150-450); RED BLOOD COUNT 4.49 MIL/MM3 (4.00-5.30); RED CELL DISTRIBUTION WIDTH 13.6 % (11.6-17.2); WHITE BLOOD COUNT 3.5 TH/MM3 (4.0-11.0)
[2017-02-26 09:23] LABS: GLUCOSE,URINE 250 mg/dL (NEG); KETONE, URINE TRACE mg/dL (NEG); PH, URINE 5.5 (5.0-8.5)
[2017-02-26 09:41] LABS: BLOOD, URINE MOD (NEG); METHOD OF COLLECTION CLEAN CATCH; NITRITE,URINE POS (NEG)
[2017-02-26 09:42] LABS: COMMENT (UR) CULTURE INDICATED; CULTURE IF INDICATED CULTURE INDICATED; SQUAMOUS EPITHELIAL CELL URINE 0-5 /hpf (0-5); URINE COLOR ORANGE (YELLW/STRAW)
[2017-02-26 09:54] LABS: POTASSIUM 3.7 MEQ/L (3.5-5.1)
[2017-02-26 09:55] LABS: BICARBONATE 31.3 MEQ/L (21.0-32.0)
[2017-02-26] MEDS ORDERED: cefTRIAXone INJ 1,000 MG in SODIUM CHLORIDE 0.9% INJ 100 ML IV ONE (10:00)
[2017-02-26] MEDS ORDERED: MACR100C2 PO (10:07)
[2017-02-26] MEDS ORDERED: PHEN0.4T PO (10:07)
== END 2017-02-26 10:28 | disposition home or self-care (01) ==
LOC: PHED 08:13
DX: R51 Headache (principal); N39.0 Urinary tract infection, site not specified; R31.9 Hematuria, unspecified; R11.2 Nausea with vomiting, unspecified; H53.149 Visual discomfort, unspecified; D64.9 Anemia, unspecified; E05.00 Thyrotoxicosis with diffuse goiter without thyrotoxic crisis or storm; M79.7 Fibromyalgia; N18.2 Chronic kidney disease, stage 2 (mild)
CPT/HCPCS: 80048; 81001; 84703; 85025; 87086; 96374; 96375; 99283; J1100; J1200; J2765; J7030

== ENCOUNTER 2017-03-02 13:07 | Emergency (ER) | payer MEDICARE, OTHER ==
[~2017-03-02] VITALS: Ht 157.5 cm; Wt 55.0 kg
[~2017-03-02 13:07] MED LIST changes: -ACET500T36 PO; +MACR100C2 PO; +PHEN0.4T PO; -TEMA30CA PO
[2017-03-02 13:10] VITALS: BP 108/66; PULSE 78; RESP 16; TEMP 98.3; O2SAT 97
[2017-03-02] MEDS ORDERED: ZOFR4TAB PO (13:33)
[2017-03-02] MEDS ORDERED: BUTA1CAP PO (13:33)
--- NOTE | 2017-03-02 13:51 | PD ---
HPI Chief Complaint: Headache Time Seen by Provider: 13:17 Travel History International Travel<30 days: No Contact w/Intl Traveler<30days: No Traveled to known affect area: No History of Present Illness HPI Seen with nurse. She complains of headache. She was here 4 days ago for the same thing. She has continued headache complaints. She has long-standing history of migraines starting as a teenager. She also has fibromyalgia and interstitial cystitis and endometriosis. Some severity is moderate. No thunderclap onset. No head injury or fever or blood thinners. No alleviating factors PFSH Past Medical History Anemia: Yes Autoimmune Disease: Yes (GRAVE'S) Diminished Hearing: No Fibromyalgia: Yes Genitourinary: Yes (INTERSTITIAL CYSTITIS) Musculoskeletal: Yes (CHRONIC BACK PAIN) Reproductive: Yes (ENDOMETRIOSIS vulvadynia pelvic floor dysfunction) Immunizations Current: Yes Renal Failure: Yes (STAGE II CKD) ?: Not Menopausal: Yes Tubal Ligation: Yes (04') Past Surgical History Abdominal Surgery: Yes (LAPROSCOPY 00', GASTRIC BYPASS 14') Section: Yes (03') Genitourinary Surgery: Yes (CYSTOSCOPY 08') Hysterectomy: Yes Oral Surgery: Yes (WISDOM 97') Social History Alcohol Use: No Tobacco Use: No Substance Use: No Allergies-Medications (Allergen,Severity, Reaction): Coded Allergies: Macrobid (Verified Allergy, Severe, Anaphylaxis, 03/02/17) Sulfa (Verified Allergy, Severe, THROAT SWELLS, 03/02/17) Reported Meds & Prescriptions Reported Meds & Active Scripts Active Gabapentin 600 Mg Tab 1,200 Mg PO TID 30 Days Review of Systems General / Constitutional: No: Fever HENT: Positive: Headaches Cardiovascular: No: Chest Pain or Discomfort Respiratory: No: Cough Physical Exam Narrative NEUROLOGICAL: Awake and alert. Pupils are equal round and reactive. Motor and sensory grossly within normal limits. Five out of 5 muscle strength in all muscle groups. Normal speech. SKIN: Focused skin assessment reveals no rash or ulcers. Skin is warm and dry. Palpation shows no induration or nodules. NECK: Symmetrical appearance, midline trachea. No mass or crepitus. Thyroid without enlargement, tenderness, or mass. Data Data Last Documented VS Vital Signs Date Time Temp Pulse Resp B/P Pulse Ox O2 Delivery O2 Flow Rate FiO2 03/02/17 13:45 16 98 Room Air 5/14/17 13:10 98.3 78 108/66 [facility] Medical Decision Making Medical Screen Exam Complete: Yes Emergency Medical Condition: Yes Medical Record Reviewed: Yes Differential Diagnosis Differential diagnosis includes migraine, tension headache, cluster headache, meningitis. Narrative Course I have reviewed the patient's electronic medical record. Reviewed her visit from 4 days ago Patient is neurologically intact. No objective findings on exam No red flags to suggest emergent imaging is indicated I wrote some medication for discomfort and nausea Recommend primary care follow-up Seems to be a flare of a chronic problem. She has a a lot of chronic pain conditions. Diagnosis Primary Impression: Cephalgia Qualified Code: R51 - Acute nonintractable headache, unspecified headache type Additional Instructions: The patient was advised to follow up with their physician and return if they worsen. The patient was warned about potential sedation for the medications they will receive on prescription. Med/Other Pt SpecificInfo: Prescription(s) given Disposition: DISCHARGE HOME Condition: Stable Sin Reaves MD March 02, 2017 13:51
[2017-03-02] MEDS ORDERED: TYLETAB34 PO (14:18)
== END 2017-03-02 14:06 | disposition home or self-care (01) ==
LOC: PHED 13:07
DX: R51 Headache (principal); M79.7 Fibromyalgia; N18.2 Chronic kidney disease, stage 2 (mild); Z86.69 Personal history of other diseases of the nervous system and sense organs; Z86.2 Personal history of diseases of the blood and blood-forming organs and certain disorders involving the immune mechanism; Z87.448 Personal history of other diseases of urinary system; Z87.39 Personal history of other diseases of the musculoskeletal system and connective tissue; Z87.42 Personal history of other diseases of the female genital tract
CPT/HCPCS: 99283